=== PATIENT | female | born 1960 | race Caucasian/White ===

== ENCOUNTER 2024-06-23 11:21 | Emergency (ER) | payer MEDICARE ==
[~2024-06-23] VITALS: Ht 167.6 cm; Wt 103.4 kg
[2024-06-23] MEDS ORDERED: NEURONTIN300 MG PO (12:22)
[2024-06-23] MEDS ORDERED: METOPROLOL SUCC25 MG PO (12:22)
[2024-06-23] MEDS ORDERED: MULTI-VITAMIN1 EACH PO (12:22)
[2024-06-23] MEDS ORDERED: ACETAMINOPHEN-1 EAC4 (12:22)
[2024-06-23] MEDS ORDERED: PANTOPRAZOLE SO40 MG PO (12:22)
[2024-06-23] MEDS ORDERED: OXYCODONE HCL20 M1 PO (12:22)
[2024-06-23] MEDS ORDERED: CELEBREX200 MG PO (12:22)
[2024-06-23 12:37] VITALS: PULSE 80; RESP 18
[2024-06-23] MEDS: PREDNISONE 20 MG TAB PO ONE (12:37)
[2024-06-23] MEDS: ALBUTEROL/IPRATROPIUM 3 ML NEB NEB ONE (12:37)
[2024-06-23] MEDS: CEFTRIAXONE 1 GM VIAL IM ONE (12:37)
[2024-06-23] MEDS ORDERED: PREDNISONE20 MG PO (12:39)
[2024-06-23] MEDS ORDERED: LEVOFLOXACIN250 MG PO (12:39)
[2024-06-23] MEDS ORDERED: VENTOLIN HFA18 GM INH (12:39)
[2024-06-23 13:09] VITALS: PULSE 87; RESP 18; TEMP 98.2; O2SAT 95
== END 2024-06-23 13:09 | disposition home or self-care (01) ==
LOC: FSED 11:49
DX: R05.9 Cough, unspecified (principal); J06.9 Acute upper respiratory infection, unspecified; J40 Bronchitis, not specified as acute or chronic; Z11.52 Encounter for screening for COVID-19
CPT/HCPCS: 0223U; 71046; 83518; 87400; 96372; 99283; J0696; J7512